=== PATIENT | female | born 1990 | race African-American/Black ===

== ENCOUNTER 2018-01-23 22:38 | Inpatient (IN) | payer OTHER ==
[2018-01-24 01:10] LABS: Hematocrit 35 % (35-47); Hemoglobin 11.3 g/dl (12.0-16.0); Mean Corpuscular HGB Conc 32 g/dl (31-36); Mean Corpuscular Hemoglobin 24 pg (27-31); Mean Corpuscular Volume 73 fL (80-97); Mean Platelet Volume 7.6 fL (7.4-10.4); Platelet Count 359 10^3/ul (150-450); Red Blood Count 4.77 10^6/ul (4.00-5.40); Red Cell Distribution Width 18 % (10.5-15)
--- NOTE | 2018-01-24 01:43 | HP ---
General Information - Reason for Visit active labor - General Information Maternal Age: 27 Grav: 1 Para: 0 SAB: 0 IEA: 0 Estimated Due Date: 01/11/18 Determined By: Early Ultrasound Maternal Blood Type and Rh: O Positive - Results this Serology/RPR Result: Non-Reactive Rubella Result: Immune HBsAg Result: Negative HIV Result: Negative GBS Culture Result: Negative Past Medical History Pertinent Past Medical History: See Records - hx kidney stones, abnormal pap LGSIL Pertinent Past Surgical History: None Pertinent Family History: See Records - DM, HTN - Antepartal Records Antepartal Records: Reviewed, Complicated by: - BMI 40, echogenic foci , Due date by 2nd trimester ultrasound Review of Systems Constitutional: Uncomfortable CV Complaint: No Respiratory: Shortness of Breath: No Gastrointestinal: No Nausea/Vomiting, Normal Bowel Movement Genitourinary: No Dysuria, No Leaking Fluid, Spotting Musculoskeletal: Contractions Neurological: No Headache, No Visual Changes Movement: Normal Exam Allergies/Adverse Reactions: Allergies No Known Allergies Allergy (Verified 05/27/15 13:22) T:97.1, P:142, R:22, BP: 145/95, O2:98 Lab Values - Entire Visit: Laboratory Tests 01/24/18 01/24/18 00:55 00:55 WBC 16.0 H RBC 4.77 Hgb 11.3 L Hct 35 MCV 73 L MCH 24 L MCHC 32 RDW 18 H Plt Count 359 MPV 7.6 Blood Type O Positive - Measurements Height: 5 ft 6 in Weight: 268 lb Weight in lbs: 268.366648 Body Mass Index (BMI): 43.2 Pre- Weight: 250 lb Weight Gained This : 18 lbs and 0 ozs - Exam Breast: Breast Exam Deferred CVA: No CVA Tenderness Extremities: No Edema Heart: Normal Rhythm/Heart Sounds HEENT: No Significant Findings Lungs: Clear Bilaterally Rectal: Rectal Exam Deferred Reflexes: DTR 2+ Thyroid: No Thyromegaly - Abdominal Exam Abdomen Exam: Fundal Height Consistent with Dates - Ultrasound/Biophysical Profile Ultrasound Status: Not Done Targeted Exam Findings Cervical Exam: 6cm Effacement: 100% Station: 0 Presenting Part: Vertex Membrane Status: Bulging Bleeding/Discharge: Bloody Show EFM Findings - External Monitor Findings Baseline Heart Rate: 140 External Monitor Findings: Accelerations Present, No Pattern of Variable or Late Decelerations, Variability Moderate, Baseline Stable Contractions: Regular, Moderate, 45-90 Seconds Contraction Frequency: 2-3 Assessment/Plan - Assessment 27 y.o. , FT, active labor - Obstetrical Risk Factors Obstetrical Risk Factors: Post-Dates - Plan Plan: Admit - Anticipate Vaginal Delivery Plan Comment: pt requests epidural - Date/Time of Admission Date of Admission: 01/24/18 Time of Admission: 00:13 - ;
[2018-01-24] MEDS ORDERED: OBEPIDURAL* 250 ML EPIDURAL ONE (01:56)
[2018-01-24] MEDS ORDERED: EPHEDrine (Pressors)* 50 MG/ML VIAL IV PUSH PRN (02:19)
[2018-01-24] MEDS ORDERED: Phenylephrine IV* 40 MCG/ML 10 ML SYRINGE IV PUSH PRN (02:19)
[2018-01-24] MEDS ORDERED: Famotidine TAB* 20 MG PO PRN (02:19)
[2018-01-24] MEDS ORDERED: Sodium Citrate/Citric Acid* 15 ML UDC PO PRN (02:19)
[2018-01-24] MEDS ORDERED: OBEPIDURAL* 250 ML EPIDURAL SCH (03:00)
[2018-01-24] MEDS ORDERED: Lidocaine 2% VISCOUS* 15 ML UDC ONE (05:23)
[2018-01-24] MEDS ORDERED: Acetaminophen TAB* 325 MG PO PRN (06:19)
[2018-01-24] MEDS ORDERED: Dibucaine 1% 28.35 GM TUBE PR PRN (06:19)
[2018-01-24] MEDS ORDERED: Glycerin ADULT SUPP PR PRN (06:19)
[2018-01-24] MEDS ORDERED: Ibuprofen TAB* 600 MG PO PRN (06:19)
--- NOTE | 2018-01-24 06:28 | PROCNOTE ---
[facility] OB: Delivery Note - Delivery A Date of : 01/24/18 Time of : 05:41 Sex: Male Weight at : 9 lb 0.5 oz Score 1 Minute: 8 Score 5 Minutes: 9 Gestational Age in Weeks and Days at Delivery: 41 Weeks and 6 Days Delivery Method: Spontaneous Vaginal Labor: Spontaneous Did Patient attempt ?: N/A, No Previous Amniotic Fluid: Clear Estimated Blood Loss: 250 Anesthesia/Analgesia: CEI for Labor Delivered By: Stacie Hammonds - Nursery Level of Nursery: Regular/Bedside - Perineum Perineal Injury: Vaginal Laceration, 2nd Degree Perineal Repair: By Delivering Practioner - Events Delivery Events of Note: None Apply
[2018-01-24] MEDS ORDERED: Simethicone TAB* 80 MG TAB.CHEW PO SCH (08:30)
[2018-01-24] MEDS: Ibuprofen ADULT LIQ* 600 MG/30 ML UDC PO PRN ×2 (11:14→20:18)
[2018-01-24] MEDS: Witch Hazel PAD* JAR TOPICAL PRN (11:14)
[2018-01-24] MEDS: Docusate CAP* 100 MG PO SCH ×3 (11:15→20:19)
[2018-01-25 06:16] LABS: ABS Basophils 0 10^3/ul (0-0.2); ABS Eosinophils 0.3 10^3/ul (0-0.6); ABS Lymphocytes 2.8 10^3/ul (1.0-4.8); ABS Monocytes 1.4 10^3/ul (0-0.8); ABS Neutrophils 9.4 10^3/ul (1.5-7.7); ABS Nucleated RBC 0 10^3/ul; Eosinophil % 1.9 % (0-6); Hematocrit 26 % (35-47); Hemoglobin 8.4 g/dl (12.0-16.0); Mean Corpuscular HGB Conc 32 g/dl (31-36); Mean Corpuscular Hemoglobin 24 pg (27-31); Mean Corpuscular Volume 75 fL (80-97); Mean Platelet Volume 7.5 fL (7.4-10.4); Nucleated Red Blood Cells % 0.1; Platelet Count 274 10^3/ul (150-450); Red Blood Count 3.51 10^6/ul (4.00-5.40); Red Cell Distribution Width 18 % (10.5-15); White Blood Count 13.9 10^3/ul (3.5-10.8)
[2018-01-25] MEDS: Ibuprofen ADULT LIQ* 600 MG/30 ML UDC PO PRN (21:23)
[2018-01-25] MEDS: Docusate LIQ* 100 MG/10 ML UDC PO SCH ×2 (21:24)
[2018-01-26] MEDS: Ibuprofen ADULT LIQ* 600 MG/30 ML UDC PO PRN ×2 (08:03→15:00)
[2018-01-26] MEDS: Docusate LIQ* 100 MG/10 ML UDC PO SCH ×2 (08:04→15:00)
[2018-01-26] MEDS: Witch Hazel PAD* JAR TOPICAL PRN (08:07)
[2018-01-26 12:18] VITALS: BP 119/68
[2018-01-26] MEDS: Ferrous Gluconate TAB* 324 MG TAB PO SCH ×2 (12:48→12:49)
== END 2018-01-26 15:20 | disposition home or self-care (01) | DRG 560 ==
LOC: MCHOBOUT 22:38 → MCHOB 01-24 00:13
PROVIDERS: ADMIT Midwife; ATTEND Midwife
PROC: 10907ZC Drainage of Amniotic Fluid, Therapeutic from Products of Conception, Via Natural or Artificial Opening (ICD-10-PCS; principal; 2018-01-24)
PROC: 4A1HXCZ Monitoring of Products of Conception, Cardiac Rate, External Approach (ICD-10-PCS; 2018-01-24)
PROC: 10E0XZZ Delivery of Products of Conception, External Approach (ICD-10-PCS; 2018-01-24)
PROC: 0KQM0ZZ Repair Perineum Muscle, Open Approach (ICD-10-PCS; 2018-01-24)
DX: O48.0 Post-term pregnancy (principal); Z37.0 Single live birth; O99.214 Obesity complicating childbirth; O90.81 Anemia of the puerperium; O70.1 Second degree perineal laceration during delivery; Z3A.41 41 weeks gestation of pregnancy; Z87.442 Personal history of urinary calculi
CPT/HCPCS: 36415; 85025; 85027; 86850; 86900; 86901; A9270-GY